=== PATIENT | male | born 1960 | race Caucasian/White ===

== ENCOUNTER 2020-04-01 11:47 | Inpatient (IN) ==
--- OUTSIDE RECORDS SUMMARY | 2020-04-01 11:50 | External Medical Summary | Continuity of Care Document ---
:1960 Author Name Lori Salas, Provider Address Unavailable Unavailable , Care Team Providers Name Role Phone Michael Salas, Tanya Shah Unavailable [email or web address] PCP, UNKNOWN Unavailable Unavailable Problems Active medical history not documented Allergies and Adverse Reactions Allergy history not documented Medications Medications not documented Procedures Procedures not documented Immunizations Immunizations not documented Plan of Treatment Planned Observations Planned Goals not documented Results No Known Results Results not documented
--- NOTE | 2020-04-01 12:13 | Emergency Department Note ---
History of Present Illness General Chief complaint: Seizure Time Seen by Provider: 04/01/20 12:00 Source: patient and EMS Mode of arrival: EMS Limitations: altered mental status History of Present Illness Provider complaint: Seizure Onset (ago): hour(s) Current Pain Intensity: 0 Associated symptoms: + denies other symptoms Treatments prior to arrival: none This is a 59-year-old male brought in by EMS [facility] after having to seizure-like episodes this morning during dialysis. Patient states he does not recall what happened. He does recall getting up, eating breakfast, and taking his usual medication, but does not recall anything after that. Per EMS report and nursing staff, staff stated he was having dialysis performed, when he had a brief episode of seizure-like activity that quickly resolved after 10 seconds or so, and then had a second longer episode lasting a minute after which time he seemed more lethargic and confused. On arrival here patient states he feels like he is in his usual state of health. Patient denies feeling any preceding or prodromal symptoms earlier in the morning. Patient denies any current headaches, dizziness, vision changes, chest pain, trouble breathing, abdominal pain, numbness or tingling, or weakness. Patient states he does get dialysis 3 times a week, only minimal urine output. Patient denies any change in his medications recently. Patient was recently admitted to the hospital with sepsis, is still receiving ongoing IV antibiotics. Patient is anticoagulated. Patient denies any family history of seizures. Patient denies any recent trauma. Pt seen during a time of high acuity and national emergency pandemic while wearing PPE. Home Medications Medication Instructions Recorded Confirmed Type allopurinol 100 mg PO DAILY 04/01/20 04/01/20 History apixaban [Eliquis] 5 mg PO BID 04/01/20 04/01/20 History ascorbic acid (vitamin C) 500 mg PO BIDM 04/01/20 04/01/20 History aspirin [Aspirin Low Dose] 81 mg PO HS 04/01/20 04/01/20 History atorvastatin 40 mg PO HS 04/01/20 04/01/20 History calcium carbonate 1,500 mg PO BID 04/01/20 04/01/20 History ceftazidime [Fortaz] 1 g IV DIRECTED 04/01/20 04/01/20 History cholecalciferol (vitamin D3) 50 mcg PO DAILY 04/01/20 04/01/20 History [Vitamin D3] cinacalcet 30 mg PO WK 04/01/20 04/01/20 History docusate sodium 100 mg PO BID 04/01/20 04/01/20 History famotidine 20 mg PO [id number] 04/01/20 04/01/20 History magnesium oxide 400 mg PO BIDM 04/01/20 04/01/20 History melatonin 3 mg PO HS 04/01/20 04/01/20 History oxybutynin chloride 5 mg PO TID 04/01/20 04/01/20 History pantoprazole 40 mg PO DAILYBB 04/01/20 04/01/20 History prednisone 5 mg PO DAILY 04/01/20 04/01/20 History sevelamer carbonate 800 mg PO TIDM 04/01/20 04/01/20 History sodium bicarbonate 325 mg PO BIDM 04/01/20 04/01/20 History sodium chloride 2 spray INTRANASAL TID PRN 04/01/20 04/01/20 History zinc sulfate 220 mg PO DAILY 04/01/20 04/01/20 History Allergies Allergy/AdvReac Type Severity Reaction Status Date / Time cefazolin [From Anc] Allergy Unknown Unverified 04/01/20 12:31 Past Med/Surg History Medical History (Updated 04/02/20 @ 15:16 by Janki Real DO) CKD (chronic kidney disease) requiring chronic dialysis CVA (cerebral vascular accident) DVT (deep venous thrombosis) Social History Smoking Status: Unknown if ever smoked Preferred Language: Zambian Communication Ability: Impaired Unit Assembler Required: No Beliefs That Will Affect Care: None Current Living Situation: Spouse Feels Safe at Home: Yes Safety Concerns: Feels Safe At This Time Assistive Devices: None Review of Systems See HPI for pertinent positives & negatives. and A total of 10 systems reviewed and were otherwise negative Physical Exam Vital Signs Vital Signs - 24 hr 04/01/20 15:10 04/01/20 15:20 04/01/20 15:30 Pulse Rate 86 78 79 Pulse Rate [Apical] Pulse Rate from SpO2 Sensor Respiratory Rate 16 17 18 Respiratory Effort / Characteristics Respiratory Depth Respiratory Pattern Blood Pressure 86/49 L Blood Pressure [Left Arm] Blood Pressure Mean 61 Blood Pressure Mean [Left Arm] Pulse Oximetry Oxygen Delivery Method Oxygen Flow Rate 04/01/20 15:39 04/01/20 15:40 04/01/20 15:48 Pulse Rate 78 75 Pulse Rate [Apical] 94 H Pulse Rate from SpO2 Sensor Respiratory Rate 14 24 20 Respiratory Effort / Characteristics Respiratory Depth Respiratory Pattern Blood Pressure 99/58 L Blood Pressure [Left Arm] 99/58 L Blood Pressure Mean 71 Blood Pressure Mean [Left Arm] 71 Pulse Oximetry 97 Oxygen Delivery Method Room Air Oxygen Flow Rate 04/01/20 15:50 04/01/20 16:00 04/01/20 16:01 Pulse Rate 91 H 79 80 Pulse Rate [Apical] Pulse Rate from SpO2 Sensor 92 H 80 Respiratory Rate 16 20 19 Respiratory Effort / Characteristics Respiratory Depth Respiratory Pattern Blood Pressure 118/56 L Blood Pressure [Left Arm] Blood Pressure Mean 76 Blood Pressure Mean [Left Arm] Pulse Oximetry 96 94 Oxygen Delivery Method Oxygen Flow Rate 04/01/20 16:10 04/01/20 16:15 04/01/20 16:20 Pulse Rate 79 71 70 Pulse Rate [Apical] Pulse Rate from SpO2 Sensor Respiratory Rate 12 19 10 L Respiratory Effort / Characteristics Respiratory Depth Respiratory Pattern Blood Pressure 114/68 Blood Pressure [Left Arm] Blood Pressure Mean 83 Blood Pressure Mean [Left Arm] Pulse Oximetry Oxygen Delivery Method Oxygen Flow Rate 04/01/20 16:30 04/01/20 16:40 04/01/20 16:46 Pulse Rate 83 88 90 Pulse Rate [Apical] Pulse Rate from SpO2 Sensor 89 Respiratory Rate 18 22 16 Respiratory Effort / Characteristics Respiratory Depth Respiratory Pattern Blood Pressure 105/68 112/64 Blood Pressure [Left Arm] Blood Pressure Mean 80 80 Blood Pressure Mean [Left Arm] Pulse Oximetry 96 Oxygen Delivery Method Oxygen Flow Rate 04/01/20 16:50 04/01/20 17:00 04/01/20 17:10 Pulse Rate 87 87 87 Pulse Rate [Apical] Pulse Rate from SpO2 Sensor 87 88 87 Respiratory Rate 24 21 Respiratory Effort / Characteristics Respiratory Depth Respiratory Pattern Blood Pressure 107/56 L Blood Pressure [Left Arm] Blood Pressure Mean 73 Blood Pressure Mean [Left Arm] Pulse Oximetry 96 96 96 Oxygen Delivery Method Oxygen Flow Rate 04/01/20 17:15 04/01/20 17:20 04/01/20 17:30 Pulse Rate 83 86 93 H Pulse Rate [Apical] Pulse Rate from SpO2 Sensor 83 87 93 H Respiratory Rate 21 20 21 Respiratory Effort / Characteristics Respiratory Depth Respiratory Pattern Blood Pressure 105/61 Blood Pressure [Left Arm] Blood Pressure Mean 75 Blood Pressure Mean [Left Arm] Pulse Oximetry 95 97 97 Oxygen Delivery Method Oxygen Flow Rate 04/01/20 17:32 04/01/20 17:40 04/01/20 17:45 Pulse Rate 86 85 69 Pulse Rate [Apical] Pulse Rate from SpO2 Sensor 86 84 71 Respiratory Rate 15 12 4 L Respiratory Effort / Characteristics Respiratory Depth Respiratory Pattern Blood Pressure 111/62 98/56 L Blood Pressure [Left Arm] Blood Pressure Mean 78 70 Blood Pressure Mean [Left Arm] Pulse Oximetry 96 100 99 Oxygen Delivery Method Oxygen Flow Rate 04/01/20 17:50 04/01/20 18:00 04/01/20 18:10 Pulse Rate 72 89 82 Pulse Rate [Apical] Pulse Rate from SpO2 Sensor 72 88 82 Respiratory Rate 3 L 17 22 Respiratory Effort / Characteristics Respiratory Depth Respiratory Pattern Blood Pressure 93/62 L Blood Pressure [Left Arm] Blood Pressure Mean 72 Blood Pressure Mean [Left Arm] Pulse Oximetry 100 98 98 Oxygen Delivery Method Oxygen Flow Rate 04/01/20 18:15 04/01/20 18:20 04/01/20 18:30 Pulse Rate 83 78 78 Pulse Rate [Apical] Pulse Rate from SpO2 Sensor 82 77 79 Respiratory Rate 24 21 Respiratory Effort / Characteristics Respiratory Depth Respiratory Pattern Blood Pressure 95/52 L Blood Pressure [Left Arm] Blood Pressure Mean 66 Blood Pressure Mean [Left Arm] Pulse Oximetry 99 98 99 Oxygen Delivery Method Oxygen Flow Rate 04/01/20 18:31 04/01/20 18:40 04/01/20 18:45 Pulse Rate 77 80 78 Pulse Rate [Apical] Pulse Rate from SpO2 Sensor 79 80 77 Respiratory Rate 15 22 24 Respiratory Effort / Characteristics Respiratory Depth Respiratory Pattern Blood Pressure 115/51 L 103/64 Blood Pressure [Left Arm] Blood Pressure Mean 72 77 Blood Pressure Mean [Left Arm] Pulse Oximetry 96 97 96 Oxygen Delivery Method Oxygen Flow Rate 04/01/20 18:50 04/01/20 19:00 04/01/20 19:01 Pulse Rate 80 82 87 Pulse Rate [Apical] Pulse Rate from SpO2 Sensor 79 84 85 Respiratory Rate 23 24 22 Respiratory Effort / Characteristics Respiratory Depth Respiratory Pattern Blood Pressure 100/56 L Blood Pressure [Left Arm] Blood Pressure Mean 70 Blood Pressure Mean [Left Arm] Pulse Oximetry 96 96 97 Oxygen Delivery Method Room Air Oxygen Flow Rate 04/01/20 19:15 04/01/20 19:30 04/01/20 19:45 Pulse Rate 74 82 74 Pulse Rate [Apical] Pulse Rate from SpO2 Sensor 75 81 71 Respiratory Rate 20 19 16 Respiratory Effort / Characteristics Respiratory Depth Respiratory Pattern Blood Pressure 109/56 L 89/71 L 94/51 L Blood Pressure [Left Arm] Blood Pressure Mean 73 77 65 Blood Pressure Mean [Left Arm] Pulse Oximetry 96 96 95 Oxygen Delivery Method Room Air Room Air Room Air Oxygen Flow Rate 04/01/20 20:15 04/01/20 20:31 04/01/20 20:46 Pulse Rate 85 84 Pulse Rate [Apical] Pulse Rate from SpO2 Sensor 86 Respiratory Rate 16 16 Respiratory Effort / Characteristics Respiratory Depth Respiratory Pattern Blood Pressure 99/58 L 96/42 L Blood Pressure [Left Arm] Blood Pressure Mean 71 75 60 Blood Pressure Mean [Left Arm] Pulse Oximetry 95 97 Oxygen Delivery Method Room Air Room Air Oxygen Flow Rate 04/01/20 21:15 04/01/20 21:23 04/01/20 21:31 Pulse Rate 77 90 81 Pulse Rate [Apical] Pulse Rate from SpO2 Sensor 89 81 Respiratory Rate 17 15 22 Respiratory Effort / Characteristics Respiratory Depth Respiratory Pattern Blood Pressure 89/41 L 123/62 97/56 L Blood Pressure [Left Arm] Blood Pressure Mean 57 82 69 Blood Pressure Mean [Left Arm] Pulse Oximetry 97 98 95 Oxygen Delivery Method Room Air Room Air Room Air Oxygen Flow Rate 04/01/20 21:40 04/01/20 21:45 04/01/20 22:00 Pulse Rate 81 84 Pulse Rate [Apical] Pulse Rate from SpO2 Sensor 81 84 Respiratory Rate 22 13 Respiratory Effort / Characteristics Non-Labored Spontaneous Respiratory Depth Normal Respiratory Pattern Regular Blood Pressure 105/62 94/50 L Blood Pressure [Left Arm] Blood Pressure Mean 76 64 Blood Pressure Mean [Left Arm] Pulse Oximetry 95 96 Oxygen Delivery Method Room Air Room Air Oxygen Flow Rate 04/01/20 22:15 04/01/20 22:30 04/01/20 22:45 Pulse Rate 91 H 73 66 Pulse Rate [Apical] Pulse Rate from SpO2 Sensor 89 73 66 Respiratory Rate 9 L 20 16 Respiratory Effort / Characteristics Respiratory Depth Respiratory Pattern Blood Pressure 92/51 L 109/61 100/48 L Blood Pressure [Left Arm] Blood Pressure Mean 64 77 65 Blood Pressure Mean [Left Arm] Pulse Oximetry 97 97 97 Oxygen Delivery Method Room Air Room Air Room Air Oxygen Flow Rate 04/01/20 23:01 04/01/20 23:15 04/01/20 23:27 Pulse Rate 65 89 Pulse Rate [Apical] Pulse Rate from SpO2 Sensor 65 90 Respiratory Rate 19 14 Respiratory Effort / Characteristics Respiratory Depth Respiratory Pattern Blood Pressure 102/57 L 109/49 L Blood Pressure [Left Arm] Blood Pressure Mean 72 82 69 Blood Pressure Mean [Left Arm] Pulse Oximetry 93 93 Oxygen Delivery Method Room Air Room Air Oxygen Flow Rate 04/01/20 23:30 04/01/20 23:45 04/02/20 00:01 Pulse Rate 82 83 Pulse Rate [Apical] Pulse Rate from SpO2 Sensor 83 81 Respiratory Rate 8 L 14 Respiratory Effort / Characteristics Respiratory Depth Respiratory Pattern Blood Pressure 131/54 L 131/48 L Blood Pressure [Left Arm] Blood Pressure Mean 72 79 75 Blood Pressure Mean [Left Arm] Pulse Oximetry 87 L 91 Oxygen Delivery Method Room Air Oxygen Flow Rate 04/02/20 00:15 04/02/20 00:30 04/02/20 00:49 Pulse Rate 82 Pulse Rate [Apical] Pulse Rate from SpO2 Sensor 84 Respiratory Rate 15 Respiratory Effort / Characteristics Respiratory Depth Respiratory Pattern Blood Pressure 113/49 L Blood Pressure [Left Arm] Blood Pressure Mean 70 45 Blood Pressure Mean [Left Arm] Pulse Oximetry 94 Oxygen Delivery Method Nasal Cannula Nasal Cannula Oxygen Flow Rate 2 2 04/02/20 00:52 04/02/20 00:53 04/02/20 01:04 Pulse Rate 86 82 Pulse Rate [Apical] Pulse Rate from SpO2 Sensor 89 81 Respiratory Rate 12 14 Respiratory Effort / Characteristics Respiratory Depth Respiratory Pattern Blood Pressure 106/45 L 93/34 L Blood Pressure [Left Arm] Blood Pressure Mean 65 53 Blood Pressure Mean [Left Arm] Pulse Oximetry 97 94 99 Oxygen Delivery Method Nasal Cannula Nasal Cannula Nasal Cannula Oxygen Flow Rate 2 2 2 04/02/20 01:11 04/02/20 01:14 04/02/20 01:15 Pulse Rate 82 81 Pulse Rate [Apical] Pulse Rate from SpO2 Sensor 82 80 Respiratory Rate 15 14 Respiratory Effort / Characteristics Respiratory Depth Respiratory Pattern Blood Pressure 100/51 L 107/51 L Blood Pressure [Left Arm] Blood Pressure Mean 44 67 69 Blood Pressure Mean [Left Arm] Pulse Oximetry 97 96 Oxygen Delivery Method Nasal Cannula Nasal Cannula Oxygen Flow Rate 2 2 04/02/20 01:20 04/02/20 01:30 04/02/20 01:34 Pulse Rate 78 81 78 Pulse Rate [Apical] Pulse Rate from SpO2 Sensor Respiratory Rate 14 Respiratory Effort / Characteristics Respiratory Depth Respiratory Pattern Blood Pressure 96/64 L Blood Pressure [Left Arm] Blood Pressure Mean 74 Blood Pressure Mean [Left Arm] Pulse Oximetry 94 Oxygen Delivery Method Nasal Cannula Oxygen Flow Rate 2 04/02/20 02:03 04/02/20 03:00 04/02/20 04:00 Pulse Rate 83 77 76 Pulse Rate [Apical] Pulse Rate from SpO2 Sensor Respiratory Rate 14 13 14 Respiratory Effort / Characteristics Respiratory Depth Respiratory Pattern Blood Pressure 102/57 L 103/31 L 88/45 L Blood Pressure [Left Arm] Blood Pressure Mean 72 57 52 Blood Pressure Mean [Left Arm] Pulse Oximetry 95 Oxygen Delivery Method Nasal Cannula Oxygen Flow Rate 2 04/02/20 04:18 04/02/20 04:53 04/02/20 05:02 Pulse Rate 85 76 70 Pulse Rate [Apical] Pulse Rate from SpO2 Sensor 75 72 Respiratory Rate 12 17 12 Respiratory Effort / Characteristics Respiratory Depth Respiratory Pattern Blood Pressure 85/58 L 74/58 L 84/68 L Blood Pressure [Left Arm] Blood Pressure Mean 73 61 72 Blood Pressure Mean [Left Arm] Pulse Oximetry 95 98 91 Oxygen Delivery Method Room Air Room Air Room Air Oxygen Flow Rate 04/02/20 05:22 Pulse Rate 69 Pulse Rate [Apical] Pulse Rate from SpO2 Sensor Respiratory Rate 13 Respiratory Effort / Characteristics Respiratory Depth Respiratory Pattern Blood Pressure 97/67 L Blood Pressure [Left Arm] Blood Pressure Mean 80 Blood Pressure Mean [Left Arm] Pulse Oximetry 92 Oxygen Delivery Method Room Air Oxygen Flow Rate GENERAL: alert, ill appearing, well nourished, no distress, non-toxic EYE EXAM: normal conjunctiva, PERRL and EOM's grossly intact OROPHARYNX: no exudate, no erythema, lips, buccal mucosa, and tongue normal and mucous membranes are moist NECK: supple, no nuchal rigidity, no adenopathy, non-tender LUNGS: Clear to auscultation. Normal chest wall mechanics, no w/r/r HEART: no murmurs, S1 normal and S2 normal ABDOMEN: abdomen soft, non-tender, normo-active bowel sounds, no masses, no rebound or guarding. BACK: Back is symmetrical on inspection and there is no deformity, no midline tenderness, no CVA tenderness. SKIN: no rashes and no bruising UPPER EXTREMITIES: upper extremities are grossly normal. FROM, nml pulses b/l. Fistula noted left upper extremity, dressing intact. LOWER EXTREMITIES: No pitting edema. FROM, nml pulses b/l. Chronic appearing skin changes and chronic appearing atrophy noted to the bilateral lower ext remities. NEURO EXAM: Normal sensorium, cranial nerves II-XII grossly intact, normal speech, no gross weakness of arms, no gross weakness of legs. Gross sensation intact. NIHSS 0 Course Course 1315: I updated the patient and now who is at bedside. She states the patient was confused on Saturday and Saturday, seemed improved yesterday, and then she received a call today that he was being sent to the emergency room. She states he did have a left-sided stroke in April 2019. She states she has not noticed any other new symptoms including facial droop, slurred speech, or asymmetric weakness. 1330: Pt with a brief, 10-15 second episode of seizures again per report. These had stopped when staff entered the room. Will add Keppra. 1338: Discussed with Erica MARTINEZ, [facility]. They request a consult with our telestroke neurologist as they currently have no in house stroke specialist. 1350: Discussed with Dr. Villalobos, [facility] teleneurolog[facility]. Pt isn't a candidate for tPA or other intervention for stroke. 1430: Discussed with [facility] again, they will accept patient, attending of record will be Dr. Gerber. 1855: We will order patient's usual ceftazidime that he would typically get in the evening. This was reviewed on the patient's MAR from . 1953: Patient still awaiting bed assignment and transportation to [facility]. We did recontact [facility] 2 separate times and they state they are still planning on the patient being transferred then this evening as they have been able to make discharges on her cleaning rooms. Patient remains hemodynamically stable here, resting comfortably. No further seizure-like activity. 5: Patient still awaiting transfer to [facility]. Case discussed with Dr. Montez to follow-up for any changes. Administered Medications Allopurinol (Allopurinol 100 Mg Tab) 100 mg PO DAILY DARRON Stop: 05/02/20 08:59 Last Admin: 04/02/20 09:07 Dose: 100 mg Documented by: [id number] Apixaban (Apixaban 5 Mg Tablet) 5 mg PO BID [facility] Stop: 05/02/20 08:59 Last Admin: 04/02/20 09:06 Dose: 5 mg Documented by: [id number] Ascorbic Acid (Ascorbic Acid 500 Mg Tab) 500 mg PO BIDM [facility] Stop: 05/02/20 07:59 Last Admin: 04/02/20 09:05 Dose: 500 mg Documented by: [id number] Calcium Carbonate (Calcium Carbonate 1250mg Tab) 3,750 mg PO BID [facility] Stop: 05/02/20 08:59 Last Admin: 04/02/20 09:06 Dose: 3,750 mg Documented by: [id number] Docusate Sodium (Docusate Sodium 100 Mg Cap) 100 mg PO BID [facility] Stop: 05/02/20 08:59 Last Admin: 04/02/20 09:06 Dose: 100 mg Documented by: [id number] Sodium Chloride (Nss 1000ml) 1,000 mls @ 50 mls/hr IV .Q20H [facility] Stop: 05/02/20 07:00 Last Admin: 04/02/20 09:04 Dose: 50 mls/hr Documented by: [id number] Magnesium Oxide (Magnesium Oxide 400 Mg Tab) 400 mg PO BIDM [facility] Stop: 05/02/20 07:59 Last Admin: 04/02/20 09:06 Dose: 400 mg Documented by: [id number] Miscellaneous (Cinacalcet (Sensipar)30 Mg Tab~Order Awaiting Action) 1 ea N/A QS [facility] Stop: 05/02/20 07:59 Last Admin: 04/02/20 09:16 Dose: Not Given Documented by: [id number] Oxybutynin Chloride (Oxybutynin Chloride 5 Mg Tab) 5 mg PO TID [facility] Stop: 05/02/20 08:59 Last Admin: 04/02/20 13:09 Dose: 5 mg Documented by: [id number] Admin: 04/02/20 09:05 Dose: 5 mg Documented by: [id number] Pantoprazole Sodium (Pantoprazole 40 Mg Tab) 40 mg PO DAILYBB [facility] Stop: 05/02/20 07:29 Last Admin: 04/02/20 09:07 Dose: 40 mg Documented by: [id number] Prednisone (Prednisone 5 Mg Tab) 5 mg PO DAILY [facility] Stop: 05/02/20 08:59 Last Admin: 04/02/20 09:05 Dose: 5 mg Documented by: [id number] Sevelamer HCl (Sevelamer Hcl 800 Mg Tablet) 800 mg PO TIDM [facility] Stop: 05/02/20 07:59 Last Admin: 04/02/20 13:10 Dose: 800 mg Documented by: [id number] Admin: 04/02/20 09:05 Dose: 800 mg Documented by: [id number] Sodium Bicarbonate (Sodium Bicarbonate 650 Mg Tab) 325 mg PO BIDM D[facility] Stop: 05/02/20 07:59 Last Admin: 04/02/20 09:05 Dose: 325 mg Documented by: [id number] Vitamin D (Cholecalciferol 1,000 Units 25 Mcg Tab) 2,000 units PO DAILY [facility] Stop: 05/02/20 08:59 Last Admin: 04/02/20 09:07 Dose: 2,000 units Documented by: [id number] Discontinued Medications Levetiracetam 1,000 mg/ Sodium (Chloride) 110 mls @ 440 mls/hr IV NOW STA Stop: 04/01/20 13:41 Last Infusion: 04/01/20 23:00 Dose: 0 mls/hr Documented by: [id number] Admin: 04/01/20 13:44 Dose: 440 mls/hr Documented by: [id number] Lorazepam (Ativan) 0.5 mg in 1 mls @ 1 mls/min IV NOW STA Stop: 04/01/20 15:25 Last Admin: 04/02/20 08:04 Dose: Not Given Documented by: [id number] Prochlorperazine (Compazine) 1 mls @ 1 mls/min IV ONE ONE Stop: 04/01/20 15:25 Last Admin: 04/01/20 15:48 Dose: 1 mls/min Documented by: [id number] Ceftazidime 500 mg/ Dextrose 50 mls @ 100 mls/hr IV NOW STA Stop: 04/01/20 22:21 Last Infusion: 04/01/20 23:05 Dose: 0 mls/hr Documented by: [id number] Admin: 04/01/20 22:39 Dose: 100 mls/hr Documented by: [id number] Sodium Chloride (Nss 1000ml) 500 mls @ 999 mls/hr IV .Q31M ONE Stop: 04/02/20 05:29 Last Infusion: 04/02/20 05:45 Dose: 0 mls/hr Documented by: [id number] Admin: 04/02/20 05:14 Dose: 999 mls/hr Documented by: [id number] Piperacillin Sod/Tazobactam Sod (Zosyn) 4.5 gm in 120 mls @ 240 mls/hr IV NOW ONE Stop: 04/02/20 06:36 Last Infusion: 04/02/20 06:45 Dose: 0 mls/hr Documented by: [id number] Admin: 04/02/20 06:15 Dose: 240 mls/hr Documented by: [id number] Ondansetron HCl (Ondansetron Inj 2 Mg/Ml 2 Ml Vial) 4 mg IV NOW STA Stop: 04/01/20 13:27 Last Admin: 04/01/20 13:44 Dose: 4 mg Documented by: [id number] Critical Care Time Critical Care Time: Yes Total Critical Care Time: 48 Critical care of 48 min performed to assess and manage high likelihood of life- threatening cva and seizures, involving labs and imaging performed with assessment to evaluate cva and seizure diagnosis with frequent reassessment. This time includes bedside time, treatment discussions with patient/family/consultants, documentation time and excludes procedure time. Medical Decision Making Differential Diagnosis Differential diagnosis includes etiologies such as infection, hypoglycemia, electrolyte abnormalities, cardiac sources, intracerebral event, trauma, toxicologic, neurologic, as well as others were entertained. Medical Records Attestation: I reviewed the patient's medical records. Home Medications Current Medication List: was personally reviewed by me Laboratory Data Attestation: I reviewed the patient's lab results. Result diagrams: 04/02/20 05:32 04/02/20 05:32 Lab Results 04/01/20 04/01/20 04/01/20 Range/Units 12:18 12:18 12:18 WBC 14.95 H (4.8-10.8) K/uL RBC 4.58 L (4.7-6.1) M/uL Hgb 14.8 (14.0-18.0) g/dL Hct 46.1 (42-52) % MCV 100.7 H (80-100) fL MCH 32.3 (25-34) pg MCHC 32.1 (32-36) g/dL RDW Std Deviation 62.8 H (36.4-46.3) fL RDW Coeff of Ara 17.0 H (11.5-14.5) % Plt Count 245 (130-400) K/uL MPV 11.5 H (7.4-10.4) fL Immature Gran % (Auto) 0.7 % Neut % (Auto) 84.3 % Lymph % (Auto) 6.0 % [place] % (Auto) 7.8 % Eos % (Auto) 1.1 % Baso % (Auto) 0.1 % Neut # (Auto) 12.58 H (1.4-6.5) K/uL Lymph # (Auto) 0.90 L (1.2-3.4) K/uL [place] # (Auto) 1.17 H (0.11-0.59) K/uL Eos # (Auto) 0.17 (0-0.5) K/uL Baso # (Auto) 0.02 (0-0.2) K/uL Immature Gran # (Auto) 0.11 H (0.00-0.02) K/uL PT 12.5 H (9.0-12.0) Seconds INR 1.2 H (0.9-1.1) Sodium 132 L (136-145) mmol/L Potassium 4.2 (3.5-5.1) mmol/L Chloride 96 L (98-107) mmol/L Carbon Dioxide 28 (21-32) mmol/L Anion Gap 9.0 (3-11) BUN 37 H (7-18) mg/dl Creatinine 7.44 H* (0.6-1.4) mg/dl Est Cr Clr Drug Dosing 12.3 ml/min Est GFR ( Amer) 8.3 Est GFR (Non-Af Amer) 7.1 BUN/Creatinine Ratio 4.9 L (10-20) Glucose 118 H (70-99) mg/dl Lactate (0.4-2.0) mmol/L Calcium 9.6 (8.5-10.1) mg/dl Phosphorus 3.1 (2.5-4.9) mg/dl Magnesium 2.7 H (1.8-2.4) mg/dl Total Bilirubin 0.6 (0.2-1) mg/dl Direct Bilirubin (0-0.2) mg/dl AST 18 (15-37) U/L ALT 30 (12-78) U/L Alkaline Phosphatase 110 (45-117) U/L Total Protein 8.3 H (6.4-8.2) gm/dl Albumin 3.9 (3.4-5.0) gm/dl Globulin 4.4 H (2.5-4.0) gm/dl Albumin/Globulin Ratio 0.9 (0.9-2) Procalcitonin (0-0.5) ng/ml Urine Color Urine Appearance (Clear) Urine pH (4.5-7.5) Ur Specific [place] (1.000-1.030) Urine Protein (Negative) Urine Glucose (UA) (Negative) Urine Ketones (Negative) Urine Blood (Negative) Urine Nitrite (Negative) Urine Bilirubin (Negative) Urine Urobilinogen (Negative) Ur Leukocyte Esterase (Negative) Urine WBC (Auto) (0-5) /hpf Urine RBC (Auto) (0-4) /hpf U Hyaline Cast (Auto) (0-5) /lpf U Epithel Cells (Auto) (0-5) /lpf Urine Bacteria (Auto) (Negative) Urine Yeast SARS-CoV-2 Ag (Rapid) (Negative) 04/01/20 04/02/20 04/02/20 Range/Units 14:52 05:20 05:32 WBC 13.59 H (4.8-10.8) K/uL RBC 4.03 L (4.7-6.1) M/uL Hgb 13.0 L (14.0-18.0) g/dL Hct 41.1 L (42-52) % MCV 102.0 H (80-100) fL MCH 32.3 (25-34) pg MCHC 31.6 L (32-36) g/dL RDW Std Deviation 63.6 H (36.4-46.3) fL RDW Coeff of Ara 17.0 H (11.5-14.5) % Plt Count 212 (130-400) K/uL MPV 11.3 H (7.4-10.4) fL Immature Gran % (Auto) 0.9 % Neut % (Auto) 77.5 % Lymph % (Auto) 12.2 % [place] % (Auto) 7.7 % Eos % (Auto) 1.5 % Baso % (Auto) 0.2 % Neut # (Auto) 10.52 H (1.4-6.5) K/uL Lymph # (Auto) 1.66 (1.2-3.4) K/uL [place] # (Auto) 1.05 H (0.11-0.59) K/uL Eos # (Auto) 0.21 (0-0.5) K/uL Baso # (Auto) 0.03 (0-0.2) K/uL Immature Gran # (Auto) 0.12 H (0.00-0.02) K/uL PT (9.0-12.0) Seconds INR (0.9-1.1) Sodium (136-145) mmol/L Potassium (3.5-5.1) mmol/L Chloride (98-107) mmol/L Carbon Dioxide (21-32) mmol/L Anion Gap (3-11) BUN (7-18) mg/dl Creatinine (0.6-1.4) mg/dl Est Cr Clr Drug Dosing ml/min Est GFR ( Amer) Est GFR (Non-Af Amer) BUN/Creatinine Ratio (10-20) Glucose (70-99) mg/dl Lactate (0.4-2.0) mmol/L Calcium (8.5-10.1) mg/dl Phosphorus (2.5-4.9) mg/dl Magnesium (1.8-2.4) mg/dl Total Bilirubin (0.2-1) mg/dl Direct Bilirubin (0-0.2) mg/dl AST (15-37) U/L ALT (12-78) U/L Alkaline Phosphatase (45-117) U/L Total Protein (6.4-8.2) gm/dl Albumin (3.4-5.0) gm/dl Globulin (2.5-4.0) gm/dl Albumin/Globulin Ratio (0.9-2) Procalcitonin (0-0.5) ng/ml Urine Color [place] Urine Appearance Turbid A (Clear) Urine pH 8.5 H (4.5-7.5) Ur Specific [place] 1.018 (1.000-1.030) Urine Protein 3+ H (Negative) Urine Glucose (UA) Negative (Negative) Urine Ketones Negative (Negative) Urine Blood 3+ H (Negative) Urine Nitrite Positive A (Negative) Urine Bilirubin Negative (Negative) Urine Urobilinogen Negative (Negative) Ur Leukocyte Esterase 3+ H (Negative) Urine WBC (Auto) >30 H (0-5) /hpf Urine RBC (Auto) 10-30 H (0-4) /hpf U Hyaline Cast (Auto) 0 (0-5) /lpf U Epithel Cells (Auto) >30 H (0-5) /lpf Urine Bacteria (Auto) Negative (Negative) Urine Yeast Not Reportable SARS-CoV-2 Ag (Rapid) Negative (Negative) 04/02/20 04/02/20 04/02/20 Range/Units 05:32 05:32 05:32 WBC (4.8-10.8) K/uL RBC (4.7-6.1) M/uL Hgb (14.0-18.0) g/dL Hct (42-52) % MCV (80-100) fL MCH (25-34) pg MCHC (32-36) g/dL RDW Std Deviation (36.4-46.3) fL RDW Coeff of Ara (11.5-14.5) % Plt Count (130-400) K/uL MPV (7.4-10.4) fL Immature Gran % (Auto) % Neut % (Auto) % Lymph % (Auto) % [place] % (Auto) % Eos % (Auto) % Baso % (Auto) % Neut # (Auto) (1.4-6.5) K/uL Lymph # (Auto) (1.2-3.4) K/uL [place] # (Auto) (0.11-0.59) K/uL Eos # (Auto) (0-0.5) K/uL Baso # (Auto) (0-0.2) K/uL Immature Gran # (Auto) (0.00-0.02) K/uL PT (9.0-12.0) Seconds INR (0.9-1.1) Sodium 135 L (136-145) mmol/L Potassium 5.1 D (3.5-5.1) mmol/L Chloride 100 (98-107) mmol/L Carbon Dioxide 29 (21-32) mmol/L Anion Gap 6.0 (3-11) BUN 54 H (7-18) mg/dl Creatinine 9.09 H* D (0.6-1.4) mg/dl Est Cr Clr Drug Dosing 10.1 ml/min Est GFR ( Amer) 6.5 Est GFR (Non-Af Amer) 5.6 BUN/Creatinine Ratio 5.9 L (10-20) Glucose 80 (70-99) mg/dl Lactate 1.4 (0.4-2.0) mmol/L Calcium 8.8 (8.5-10.1) mg/dl Phosphorus (2.5-4.9) mg/dl Magnesium (1.8-2.4) mg/dl Total Bilirubin 0.5 (0.2-1) mg/dl Direct Bilirubin 0.2 (0-0.2) mg/dl AST 13 L (15-37) U/L ALT 23 (12-78) U/L Alkaline Phosphatase 100 (45-117) U/L Total Protein 7.3 (6.4-8.2) gm/dl Albumin 3.5 (3.4-5.0) gm/dl Globulin (2.5-4.0) gm/dl Albumin/Globulin Ratio (0.9-2) Procalcitonin 0.83 H (0-0.5) ng/ml Urine Color Urine Appearance (Clear) Urine pH (4.5-7.5) Ur Specific [place] (1.000-1.030) Urine Protein (Negative) Urine Glucose (UA) (Negative) Urine Ketones (Negative) Urine Blood (Negative) Urine Nitrite (Negative) Urine Bilirubin (Negative) Urine Urobilinogen (Negative) Ur Leukocyte Esterase (Negative) Urine WBC (Auto) (0-5) /hpf Urine RBC (Auto) (0-4) /hpf U Hyaline Cast (Auto) (0-5) /lpf U Epithel Cells (Auto) (0-5) /lpf Urine Bacteria (Auto) (Negative) Urine Yeast SARS-CoV-2 Ag (Rapid) (Negative) 04/02/20 Range/Units 05:32 WBC (4.8-10.8) K/uL RBC (4.7-6.1) M/uL Hgb (14.0-18.0) g/dL Hct (42-52) % MCV (80-100) fL MCH (25-34) pg MCHC (32-36) g/dL RDW Std Deviation (36.4-46.3) fL RDW Coeff of Ara (11.5-14.5) % Plt Count (130-400) K/uL MPV (7.4-10.4) fL Immature Gran % (Auto) % Neut % (Auto) % Lymph % (Auto) % [place] % (Auto) % Eos % (Auto) % Baso % (Auto) % Neut # (Auto) (1.4-6.5) K/uL Lymph # (Auto) (1.2-3.4) K/uL [place] # (Auto) (0.11-0.59) K/uL Eos # (Auto) (0-0.5) K/uL Baso # (Auto) (0-0.2) K/uL Immature Gran # (Auto) (0.00-0.02) K/uL PT (9.0-12.0) Seconds INR (0.9-1.1) Sodium (136-145) mmol/L Potassium (3.5-5.1) mmol/L Chloride (98-107) mmol/L Carbon Dioxide (21-32) mmol/L Anion Gap (3-11) BUN (7-18) mg/dl Creatinine (0.6-1.4) mg/dl Est Cr Clr Drug Dosing ml/min Est GFR ( Amer) Est GFR (Non-Af Amer) BUN/Creatinine Ratio (10-20) Glucose (70-99) mg/dl Lactate (0.4-2.0) mmol/L Calcium (8.5-10.1) mg/dl Phosphorus (2.5-4.9) mg/dl Magnesium 3.0 H (1.8-2.4) mg/dl Total Bilirubin (0.2-1) mg/dl Direct Bilirubin (0-0.2) mg/dl AST (15-37) U/L ALT (12-78) U/L Alkaline Phosphatase (45-117) U/L Total Protein (6.4-8.2) gm/dl Albumin (3.4-5.0) gm/dl Globulin (2.5-4.0) gm/dl Albumin/Globulin Ratio (0.9-2) Procalcitonin (0-0.5) ng/ml Urine Color Urine Appearance (Clear) Urine pH (4.5-7.5) Ur Specific [place] (1.000-1.030) Urine Protein (Negative) Urine Glucose (UA) (Negative) Urine Ketones (Negative) Urine Blood (Negative) Urine Nitrite (Negative) Urine Bilirubin (Negative) Urine Urobilinogen (Negative) Ur Leukocyte Esterase (Negative) Urine WBC (Auto) (0-5) /hpf Urine RBC (Auto) (0-4) /hpf U Hyaline Cast (Auto) (0-5) /lpf U Epithel Cells (Auto) (0-5) /lpf Urine Bacteria (Auto) (Negative) Urine Yeast SARS-CoV-2 Ag (Rapid) (Negative) Imaging Data Radiologist's Impression: XR chest 1V portable CLINICAL HISTORY: Acute change in mental status COMPARISON STUDY: No previous studies for comparison. FINDINGS: The cardiac and mediastinal contours are normal. There is no evidence of focal pulmonary consolidation. There is no evidence of failure. No pleural effusions are visualized.[There is a vascular stent in the left axillary region. There is a vascular stent in the right paratracheal region. IMPRESSION: No active disease in the chest. ACT 112: Negative or not required by law. Electronically signed by: Paul Roman M.D. 04/01/2020 12:[address] head/brain wo con CLINICAL HISTORY: new seizure COMPARISON STUDY: No previous studies for comparison. TECHNIQUE: Axial CT of the brain is performed from the vertex to the skull base. IV contrast was not administered for this examination. A dose lowering technique was utilized adhering to the principles of ALARA. CT DOSE: 1185.89 mGycm FINDINGS: There is a left temporal occipital infarct, likely subacute or chronic. There is subtle decreased attenuation within the right temporal and occipital lobe suspicious for an acute infarct. There is no definite hemorrhage. There is no midline shift. No calvarial fractures are visualized There are patchy white matter hypodensities likely on a small vessel basis. There is no evidence of pathologic ventricular dilatation. There is no evidence of acute sinusitis IMPRESSION: 1. Left temporal occipital infarct, likely subacute or chronic 2. Subtle decreased attenuation within the right temporal and occipital lobes suspicious for acute infarction. An MRI could be obtained in follow-up for confirmation. ACT 112: Negative or not required by law. Electronically signed by: Paul Roman M.D. 04/01/2020 12:59 PM ECG Data Attestation: I personally reviewed and interpreted this ECG as follows: Indication: + weakness Rate (beats per minute): 77 Rhythm: + normal sinus ECG Intervals/blocks: + Normal QRS and + Normal QT ECG [place]: + Normal ECG ST segments: + Normal ST segments MDM Narrative This is a 59-year-old male brought in from [facility] after a seizure-like event while patient was undergoing dialysis. Patient underwent labs and imaging and placed on a library monitor. Patient with significant recent past medical history including recent hospitalization at another facility for sepsis related to urinary tract infection. Patient is still getting IV ceftazidime daily. CT revealed acute CVA as well as old CVA. Given unknown last time well, current anticoagulation, and NIH stroke score of 0, I do not feel patient a candidate for emergent TPA. I did discuss the case with on-call teleneurology at [place] who agreed. Patient otherwise to be treated medically for stroke evaluation. Patient's family requested he be sent back to [facility] where he had recently been admitted. Arrangements were made after discussion with them on 2 occasions and they accepted the patient for transfer, however a bed was pending at the time. Patient continued to be well-appearing here. I did order the patient's usual IV ceftazidime that he has been getting. Patient did get his morning anticoagulation prior to coming in. Patient did have 1 brief episode of hypotension which improved with a 500 mL bolus of IV fluids. Additional fluids otherwise KVO due to patient's volume status and the fact that he did not complete dialysis earlier today, as he only had 3 hours. Patient remained hemodynamically stable while in the emergency room while I was present. Patient signed out to my colleague as he was still in the department at change of shift. We did discuss that if patient could not soon be transferred down there, he may need to be admitted here as a precaution for additional monitoring and treatment until a bed is available at [facility]. Patient's labs otherwise reassuring in light of recent sepsis and other comorbidities. I do not suspect worsening or evolving sepsis. Patient did receive a dose of IV Keppra earlier, he had no recurrent seizure-like activity. An order was placed for continuous cardiac monitoring. The monitor shows a rate of _80_ with _normal sinus rhythm. Impression & Plan New onset seizure, CKD (chronic kidney disease) requiring chronic dialysis, Acute CVA (cerebrovascular accident) Discharge Plan Visit Data Chief Complaint: Seizure ED Provider: Galindo Morrow Discharge Problem: New onset seizure, CKD (chronic kidney disease) requiring chronic dialysis, Acute CVA (cerebrovascular accident) Patient Disposition: Admitted As Inpatient Discharge Instructions Interventions: ED Discharge Assessment Last Done: 04/02/20 06:34
--- NOTE | 2020-04-01 12:24 | XRay Report ---
XR chest 1V portable CLINICAL HISTORY: Acute change in mental status COMPARISON STUDY: No previous studies for comparison. FINDINGS: The cardiac and mediastinal contours are normal. There is no evidence of focal pulmonary co nsolidation. There is no evidence of failure. No pleural effusions are visualized.[There is a vascula r stent in the left axillary region. There is a vascular stent in the right paratracheal region. IMPRESSION: No active disease in the chest. ACT 112: Negative or not required by law. Electronically signed by: Paul Roman M.D. 04/01/2020 12:22 PM
[2020-04-01 12:27] LABS: Basophils # (auto) 0.02 K/uL (0-0.2); Basophils % (auto) 0.1 %; Eosinophils # (auto) 0.17 K/uL (0-0.5); Eosinophils % (auto) 1.1 %; Hematocrit (blood only) 46.1 % (42-52); Hemoglobin 14.8 g/dL (14.0-18.0); Immature Granulocytes # (auto) 0.11 K/uL (0.00-0.02); Immature Granulocytes % (auto) 0.7 %; Mean Corpuscular Hemoglobin 32.3 pg (25-34); Mean Corpuscular Hgb Conc 32.1 g/dL (32-36); Mean Corpuscular Volume 100.7 fL (80-100); Mean Platelet Volume 11.5 fL (7.4-10.4); Monocytes # (auto) 1.17 K/uL (0.11-0.59); Monocytes % (auto) 7.8 %; Neutrophils # (auto) 12.58 K/uL (1.4-6.5); Neutrophils % (auto) 84.3 %; Platelet Count 245 K/uL (130-400); RDW Standard Deviation 62.8 fL (36.4-46.3); Red Blood Count 4.58 M/uL (4.7-6.1); White Blood Count 14.95 K/uL (4.8-10.8)
[2020-04-01 12:38] LABS: INR 1.2 (0.9-1.1); Prothrombin Time 12.5 Seconds (9.0-12.0)
--- NOTE | 2020-04-01 13:00 | CT Scan Report ---
CT head/brain wo con CLINICAL HISTORY: new seizure COMPARISON STUDY: No previous studies for comparison. TECHNIQUE: Axial CT of the brain is performed from the vertex to the skull base. IV contrast was not administered for this examination. A dose lowering technique was utilized adhering to the principles of ALARA. CT DOSE: 1185.89 mGycm FINDINGS: There is a left temporal occipital infarct, likely subacute or chronic. There is subtle decreased att enuation within the right temporal and occipital lobe suspicious for an acute infarct. There is no de finite hemorrhage. There is no midline shift. No calvarial fractures are visualized There are patchy white matter hypodensities likely on a small vessel basis. There is no evidence of pathologic ventricular dilatation. There is no evidence of acute sinusitis IMPRESSION: 1. Left temporal occipital infarct, likely subacute or chronic 2. Subtle decreased attenuation within the right temporal and occipital lobes suspicious for acute in farction. An MRI could be obtained in follow-up for confirmation. ACT 112: Negative or not required by law. Electronically signed by: Paul Roman M.D. 04/01/2020 12:59 PM
[2020-04-01 13:15] LABS: Albumin Level 3.9 gm/dl (3.4-5.0); Bilirubin,Total 0.6 mg/dl (0.2-1); Calcium 9.6 mg/dl (8.5-10.1); Magnesium 2.7 mg/dl (1.8-2.4); Phosphorus 3.1 mg/dl (2.5-4.9); Potassium 4.2 mmol/L (3.5-5.1); Total Protein 8.3 gm/dl (6.4-8.2)
[2020-04-01 13:16] LABS: Albumin Globulin Ratio 0.9 (0.9-2); BUN Creatinine Ratio 4.9 (10-20); Creatinine Clr Calc Pharmacy 12.3 ml/min; Est GFR (African American) 8.3; Est GFR (Non-African American) 7.1; Globulin 4.4 gm/dl (2.5-4.0)
[2020-04-01] MEDS ORDERED: ONDANSETRON INJ 2 MG/ML 2 ML VIAL IV STA (13:26)
[2020-04-01] MEDS ORDERED: levETIRAcetam 1,000 MG in 0.9 % SODIUM CHLORIDE 100 ML IV STA (13:27)
[2020-04-01] MEDS ORDERED: LORazepam 0.5 MG/1 ML VIAL IV STA (15:24)
[2020-04-01] MEDS ORDERED: PROCHLORPERAZINE 1 ML IV ONE (15:24)
[2020-04-01] MEDS ORDERED: cefTAZidime 500 MG in DEXTROSE 5% 50 ML IV STA (21:52)
--- NOTE | 2020-04-02 00:57 | Emergency Department Note ---
ED Visit Note This patient was signed out to me at shift change at approximately [address] Real. The patient had been evaluated and was awaiting transfer to [facility]. [facility] yet. I checked on the patient several times hearing stably no seizure- like activity. He is being transferred there for further treatment evaluation of a stroke and seizure. He was outside of the intervention/TPA window. They are still waiting on a bed and at approximately 1:[address] out [address]. Morrow the night order selector .
--- NOTE | 2020-04-02 01:07 | Emergency Department Note ---
ED Visit Note ED Physician Sign Out Note: 59 yr old chronically unwell male with acute stroke and seizure earlier today. Recently discharged from [facility] 2nd UTI sepsis and rehabing at [facility]. At time of sign out to me by Dr Montez he has been in ED for 12+ hours awaiting bed availability at [facility] where he was accepted earlier. Already loaded with Keppra. Patient evaluated and in no distress. BP a bit low but review appears this has been his baseline and as a dialysis patient not overly concerning. No evidence sepsis. No further seizures. Given prolonged ED stay [facility] was contacted by workers compensation legal secretary who notes they do not have available bed until later today. As he will need dialysis and clearly further work-up, Hospitalist Dr [] consulted for further management. Around 4:30am patient with BP in 80s/50s. This was noted to have happened yesterday, but given no fluids overnight he was given 500mL IV bolus. When complete repeat BP now in 70s/40s. At this time further fluid bolus, along with septic work up initiated (given his history of recent hospitalization for UTI Sepsis). UA along with cultures, labs ordered and another 500mL IV bolus given. This brought BP to 97/67 then a bit later up to 110/70 and patient notes feeling much better. WBC stable from earlier, lactate 1.4. UA dirty though not convinced infectious, but it setting of recent sepsis and now dealing with hypotension he was given IV zosyn for coverage (appears he has been on outpatient Fortaz). With BPs normalizing, no lactic acidosis, will hold on further fluid bolus given he is dialysis patient and at risk of overload. Critical Care: I have personally spent 30 minutes of critical care time in the direct management of this patient. Acute hypotension likely secondary to sepsis requiring fluid resus and management. This was a life/limb threatening event. This 30 minutes is in excess of all separately billable procedures. Galindo Morrow MD
[2020-04-02] MEDS ORDERED: SODIUM CHLORIDE 0.9% 1000ML 500 ML IV ONE (04:59)
[2020-04-02 05:45] LABS: Basophils # (auto) 0.03 K/uL (0-0.2); Basophils % (auto) 0.2 %; Eosinophils # (auto) 0.21 K/uL (0-0.5); Eosinophils % (auto) 1.5 %; Hematocrit (blood only) 41.1 % (42-52); Immature Granulocytes # (auto) 0.12 K/uL (0.00-0.02); Immature Granulocytes % (auto) 0.9 %; Lymphocytes # (auto) 1.66 K/uL (1.2-3.4); Lymphocytes % (auto) 12.2 %; Mean Corpuscular Hemoglobin 32.3 pg (25-34); Mean Corpuscular Hgb Conc 31.6 g/dL (32-36); Mean Platelet Volume 11.3 fL (7.4-10.4); Monocytes # (auto) 1.05 K/uL (0.11-0.59); Monocytes % (auto) 7.7 %; Neutrophils # (auto) 10.52 K/uL (1.4-6.5); Neutrophils % (auto) 77.5 %; Platelet Count 212 K/uL (130-400); RDW Standard Deviation 63.6 fL (36.4-46.3); Red Blood Count 4.03 M/uL (4.7-6.1); White Blood Count 13.59 K/uL (4.8-10.8)
[2020-04-02 05:48] LABS: Appearance Urine Turbid (Clear); Bacteria Urine Automated Negative (Negative); Bilirubin Urine Negative (Negative); Blood Urine 3+ (Negative); Color Urine Orange; Epithelial Cell Urine Auto >30 /lpf (0-5); Glucose Urine UA Negative (Negative); Ketones Urine Negative (Negative); Leukocyte Esterase Urine 3+ (Negative); Nitrite Urine Positive (Negative); Specific Gravity Urine 1.018 (1.000-1.030); Urobilinogen Urine Negative (Negative); WBC Urine Automated >30 /hpf (0-5); pH Urine 8.5 (4.5-7.5)
[2020-04-02 05:50] LABS: Protein Urine 3+ (Negative)
[2020-04-02 06:02] LABS: Cast Urine Automated 0 /lpf (0-5)
[2020-04-02] MEDS ORDERED: PIPERACILLIN/TAZOBACTAM 4.5 GM/120 ML BAG IV ONE (06:07)
[2020-04-02] MEDS ORDERED: PIPERACILL/TAZOBAC CONSULT ACTIVE PRN (06:07)
[2020-04-02 06:18] LABS: Albumin Level 3.5 gm/dl (3.4-5.0); BUN Creatinine Ratio 5.9 (10-20); Bilirubin Direct 0.2 mg/dl (0-0.2); Bilirubin,Total 0.5 mg/dl (0.2-1); Calcium 8.8 mg/dl (8.5-10.1); Creatinine Clr Calc Pharmacy 10.1 ml/min; Est GFR (African American) 6.5; Est GFR (Non-African American) 5.6; Potassium 5.1 mmol/L (3.5-5.1); Total Protein 7.3 gm/dl (6.4-8.2)
[2020-04-02] MEDS ORDERED: ONDANSETRON INJ 2 MG/ML 2 ML VIAL IV PRN (07:01)
[2020-04-02] MEDS ORDERED: SODIUM CHLORIDE 0.65% NA SOLN 45 ML (OCEAN) PRN (07:01)
[2020-04-02] MEDS ORDERED: ACETAMINOPHEN 325 MG TAB PO PRN (07:01)
[2020-04-02] MEDS ORDERED: LORazepam 1.5 MG/3 ML VIAL IV PRN (07:01)
[2020-04-02] MEDS ORDERED: NON-FORMULARY MEDICATION (Cinacalcet 30 mg tablet) PO SCH (07:01)
[2020-04-02] MEDS ORDERED: CEFTAZIDIME IV SCH (07:01)
[2020-04-02] MEDS ORDERED: NITROGLYCERIN SL 0.4 MG/TAB TAB SL PRN (07:01)
[2020-04-02] MEDS ORDERED: SODIUM CHLORIDE 0.9% 1000ML 1,000 ML IV SCH (07:01)
[2020-04-02] MEDS ORDERED: PHARMACIST DISCHARGE MED REC CONSULT PRN (07:01)
[2020-04-02] MEDS ORDERED: PANTOprazole 40 MG TAB PO SCH (07:30)
--- NOTE | 2020-04-02 07:32 | Electrocardiogram Report ---
Test Reason : Blood Pressure : / mmHG Vent. Rate : 077 BPM Atrial Rate : 077 BPM P-R Int : 172 ms QRS Dur : 100 ms QT Int : 370 ms P-R-T Axes : 078 061 082 degrees QTc Int : 418 ms Normal sinus rhythm Normal ECG No previous ECGs available Confirmed by Eran Fischer ([id number]) on 04/02/2020 7:31:43 AM Referred By: [facility] Confirmed By:Eran Fischer
[2020-04-02] MEDS ORDERED: CHOLECALCIFEROL 1,000 UNITS 25 MCG TAB PO SCH (09:00)
[2020-04-02] MEDS ORDERED: DOCUSATE SODIUM 100 MG CAP PO SCH (09:00)
[2020-04-02] MEDS ORDERED: predniSONE 5 MG TAB PO SCH (09:00)
[2020-04-02] MEDS ORDERED: APIXABAN 5 MG TABLET PO SCH (09:00)
[2020-04-02] MEDS ORDERED: CALCIUM CARBONATE 1250MG TAB PO SCH (09:00)
[2020-04-02] MEDS ORDERED: allopurinoL 100 MG TAB PO SCH (09:00)
[2020-04-02] MEDS: OXYBUTYNIN CHLORIDE 5 MG TAB PO SCH ×2 (09:05→13:09)
[2020-04-02] MEDS: ASCORBIC ACID 500 MG TAB PO SCH ×2 (09:05→18:36)
[2020-04-02] MEDS: SEVELAMER HCL 800 MG TABLET PO SCH ×3 (09:05→18:35)
[2020-04-02] MEDS: SODIUM BICARBONATE 650 MG TAB PO SCH ×2 (09:05→18:35)
[2020-04-02] MEDS: MAGNESIUM OXIDE 400 MG TAB PO SCH ×2 (09:06→18:35)
--- NOTE | 2020-04-02 09:28 | History and Physical Report ---
DATE OF ADMISSION: 04/02/2020 CHIEF COMPLAINT: Seizures and CVA. HISTORY OF PRESENT ILLNESS: This is a 59-year-old male with past medical history significant for end-stage renal disease, on hemodialysis, history of stroke, history of gout, history of hyperlipidemia, recently had sepsis from UTI and was in [facility], was discharged to [facility], was brought in because of seizure episode. The patient had 2 episodes of seizures while he was getting dialysis yesterday and when he was brought to the ER, he was fine, back to his usual self. The patient had a CAT scan showing left temporal occipital infarct, likely subacute or chronic. The patient since was from [facility]. Transfer was planned to [facility], but after 15 hours of stay in the ER, the [facility] called and stated they do not have a beds currently, so the patient is getting admitted. The patient is somewhat sleepy but arousable, can tell his name, knows he is in the hospital, can tell his date of , does not know today's date. Denies any chest pain. Denies any shortness of breath, no cough, no fever, no chills, no headache, no blurred vision, no earache, no runny nose, no sore throat. Appetite is okay. No nausea, no abdominal pain. Still makes urine. requests to put him on Calderón because he straight caths daily at home. Currently somewhat drowsy. Blood pressure is running on the lower side, seems to have blood pressures chronically on the lower side, but because of recent sepsis, sepsis workup is getting done in the ER. He is still on IV antibiotics from [facility] for his recent UTI. ALLERGIES AND PAST MEDICAL HISTORY: As mentioned above. PAST SURGICAL HISTORY: Denies any past surgical history. MEDICATIONS: Currently the patient is on allopurinol 100 mg p.o. daily, Eliquis 5 mg p.o. b.i.d., ____ 500 mg p.o. b.i.d., aspirin 81 mg at bedtime, atorvastatin 40 mg at bedtime, calcium carbonate 325 mg p.o. b.i.d., ceftazidime 1 gram IV as directed, vitamin D 50 mcg p.o. daily, cinacalcet 30 mg p.o. weekly, Colace 100 mg p.o. b.i.d., famotidine 20 mg p.o. 3 times a week, magnesium oxide 400 mg p.o. b.i.d., melatonin 3 mg p.o. at bedtime, oxybutynin 5 mg p.o. t.i.d., Protonix 40 mg p.o. daily, prednisone 5 mg p.o. daily, sevelamer carbonate 800 mg p.o. t.i.d., sodium bicarbonate 325 mg p.o. b.i.d., sodium chloride 2 sprays intranasal t.i.d. p.r.n., zinc sulfate 220 mg p.o. daily. FAMILY HISTORY: Noncontributory. SOCIAL HISTORY: Denies smoking, no alcohol. Lives with his . REVIEW OF SYSTEMS: As per HPI. Could not get a complete review of systems as the patient is somewhat drowsy. PHYSICAL EXAMINATION: GENERAL: The patient is drowsy but arousable. VITAL SIGNS: Temperature 36.4, pulse 70, respiratory rate 14, blood pressure 110/45, oxygen 92% on room air. HEENT: Pupils equal, round, reactive to light. No pallor, no icterus. Oral mucosa moist. Tongue midline. NECK: No JVD, no neck masses. CARDIOVASCULAR: S1, S2, regular rate and rhythm, no murmur, no gallop. RESPIRATORY SYSTEM: Normal AP diameter. No accessory muscle use. No wheezing, no crackles. ABDOMEN: Soft, bowel sounds present, nontender. No distention. CENTRAL NERVOUS SYSTEM: Alert, drowsy but oriented to name and place. Speech clear. No facial droop seen. Tongue midline. Power 5/5 in all extremities. Able to lift his extremities. No pronator drift seen. Could not do a complete exam as the patient is somewhat unable to follow the commands. EXTREMITIES: No edema, no erythema. LABORATORY DATA: WBC 13.5, hemoglobin 13, hematocrit 41 and platelets 212. PT 12.2, INR 1.2. Sodium 135, potassium 5.1, chloride 100, CO2 of 29, BUN 54, creatinine 9, serum glucose 80. Lactic acid 1.4, calcium 8.8, phosphorus 3.1, magnesium 2.7, total bilirubin 0.5, direct bilirubin 0.2, AST 13, ALT 23, alkaline phosphatase 100. Urinalysis positive for +3 blood, positive for urine nitrite. SARS-CoV-2 rapid antigen test negative. Chest x-ray, no active disease in the chest. Head CT; left temporal occipital infarct, likely subacute to chronic, subtle decreased attenuation in the right temporal and occipital lobe suspicious for acute infarction. An MRI could be obtained. EKG: Normal sinus rhythm, rate of 77, no previous EKGs available. ASSESSMENT AND PLAN: A 59-year-old male with end-stage renal disease, on hemodialysis, was recently in the [facility] for sepsis from a urinary tract infection and is still on IV ceftazidime, currently at [facility], was brought in because of seizure activity and also found to have cerebrovascular accident on CAT scan. 1. Acute versus subacute cerebrovascular accident on the CAT scan, history of stroke last year, on Eliquis and aspirin and statin. Supposed to be transferred to [facility] where he was recently, but beds are not available, so he is getting admitted to [facility]. We will do stroke workup with MRI scan, echocardiogram, carotid Doppler, speech evaluation and Neuro consult. We will keep him n.p.o. until he is seen by speech, consulted neurology for further recommendations. 2. Seizure activity. received Keppra in ER. will place him on IV Ativan p.r.n. Get EEG and further recommendation as per neurology. 3. History of stroke in the past. Continue Eliquis, aspirin and statin. 4. Recent sepsis, blood pressure was low in the Emergency Room. Got fluid bolus and the blood pressure improved. He is on ceftazidime. ER also started on Zosyn and ordered cultures. UA is still positive. Lactic normal. He is on gentle fluids. Monitor for volume overload. Fluids as per nephrology. For now will just continue his IV ceftazidime.Will add iv vanco if any concern for ongoing sepsis. 5. End-stage renal disease, he is on hemodialysis. Nephrology consult. 6. Gastroesophageal reflux disease, proton pump inhibitor. 7. Heme-positive stool. Hemoccult was positive in the Emergency Room, but no obvious bleeding. Hemoglobin stable at 13. He is on Eliquis. Continue to monitor.Will also check for c diff. 8. History of renal transplant, which has failed as per ,still on prednisone, there is a plan for further transplant in the future. 9. Deep venous thrombosis prophylaxis, on Eliquis. DISPOSITION: Closely monitor in tele floor. Level 1 full code. Expect to transfer to [facility] or discharge to [facility] when stable. Social service to help with discharge planning. MELODY
--- NOTE | 2020-04-02 13:32 | Ultrasound Report ---
US carotid doppler BI CLINICAL HISTORY: 59 years-old Male with cva. Acute strokelike symptoms COMPARISON: Brain MRI of same day TECHNIQUE: Multiple real time sonographic images of the carotid bifurcations were obtained assessing li scale, color Doppler and spectral wave form appearance FINDINGS: RIGHT CAROTID: The peak systolic velocity measured within the right ICA is83 cm/sec. The end diasto lic velocity measured 22 cm/sec. The ICA to CCA ratio measured 0.8 which correlates with a stenosis of 0-50%. Minimal calcified plaque of the proximal right ICA. LEFT CAROTID: The peak systolic velocity measured within the left ICA is96 cm/sec. The end diastoli c velocity measured 27 cm/sec. The ICA to CCA ratio measured 1.0 which correlates with a stenosis of 0-50%. Minimal calcified plaque of the proximal left ICA. There is normal antegrade vertebral flow bilaterally. IMPRESSION: 1. No hemodynamically significant stenosis or significant atherosclerotic plaquing. 2. Normal antegrade vertebral flow bilaterally. ACT 112: Negative or not required by law. The above report was generated using voice recognition software. It may contain grammatical, syntax o r spelling errors. Electronically signed by: Kali Sewell M.D. 04/02/2020 1:31 PM
--- NOTE | 2020-04-02 13:44 | Progress Notes ---
DATE: 04/02/2020 HISTORY OF PRESENT ILLNESS: The patient is a 59-year-old with a past medical history of a failed transplant with end-stage renal disease on hemodialysis, history of prior stroke, gout, hyperlipidemia and recently sepsis from urinary tract infection. He was recently discharged from [facility] to [facility]. I do not know how long the patient had been on [facility], but he was undergoing dialysis yesterday. I had the dialysis nurse called the treating dialysis nurse and they indicated that during dialysis, he was very hypotensive and during the seizure, he was hypotensive. His blood pressure was at most 70 and perhaps at least 40 in the right arm and blood pressure was unable to be obtained in the legs. The patient by report also had a brief 10-second seizure while in the Emergency Room. I am not aware of what his blood pressure was at that time. After that time, the patient was loaded with Keppra. His CT of the head shows what appears to be a subacute to chronic left FRICKERTRON CHECKER infarct and MRI of the brain and CT shows some hypodensities in the distribution of the right MCA. MRI of the brain has not yet been read, but appears to show a posterior division of the right MCA infarction. Carotids are being performed as well. By report, the patient has no history of seizure. He has not otherwise been ill. REVIEW OF SYSTEMS: As reviewed from primary care appears unremarkable. The patient received multiple boluses of fluids in the Emergency Room due to hypotension. PAST MEDICAL HISTORY: As above. PAST SURGICAL HISTORY: Unobtainable from the patient. I understand that he had a failed transplant whether or not that is true is unclear HOME MEDICATIONS: Allopurinol, Eliquis, aspirin, atorvastatin, calcium carbonate, ceftazidime, vitamin D., cinacalcet, Colace, famotidine, magnesium oxide, melatonin, oxybutynin, Protonix, prednisone, sevelamer, sodium bicarbonate, sodium chloride, zinc sulfate. FAMILY HISTORY: Noncontributory. SOCIAL HISTORY: Denies smoking, no alcohol. Lives with . REVIEW OF SYSTEMS: Not obtainable. DATABASE: In addition to the aforementioned MRI of the brain and CT showed a white count on admission to be 15, H and H 14/46, platelet count 245. INR 1.2. Sodium 132 and creatinine 7.44, glucose 118, magnesium 2.7, total protein 8.3. Urinalysis, 3+ protein, 3+ blood, positive nitrite, 3+ leukocyte esterase, white blood cells greater than 30. COVID negative. Blood pressures are reviewed. Lowest on the floor, appeared to be 74/58. PHYSICAL EXAMINATION: CURRENT VITAL SIGNS: 121/71, 77, 20, 36.4, O2 sat 100% on room air. GENERAL: The patient is awake, alert, but mentation is slowed and he is inattentive. He is able to state his name. He has difficulty following commands, but he can follow occasional 1-step commands. He denies any headache or new weakness. HEAD: Normocephalic, atraumatic. NECK: No carotid bruits. HEART: No heart murmurs. The heart appears to be regular rate and rhythm. NEUROLOGIC: Pupils are equal, round and reactive to light. I could not reliably visualize the optic nerves. Visual castorena are impaired to the right and maybe as well to the left, although I believe I had him counting a few fingers toward the left. There appears to be some right/left confusion. I cannot test to naming being intact. Strength appeared full in the uppers. There may have been mildly weaker on the left. The patient did not understand the command for rapid alternating movements. Lower extremities appeared to be symmetric as well. There is significant distal atrophy in the lower extremities. It appears that the TAs are likely weak as well. The patient's reflexes are diffusely diminished. Knee jerks are absent. Ankle jerks are absent. Toes are downgoing. The patient does not understand cerebellar function to perform and he indicates that temperature is symmetric bilaterally. IMPRESSION: This patient presented with a several brief seizures. It is unclear whether this just represents hypoperfusion or related to hypotension or whether or not this was a true seizure. The new right MCA stroke could be a watershed stroke as well related to hypotension. I do recommend obtaining the carotid ultrasound to see if there is any high-grade stenosis that would put him at more risk with relative hypotension. Also recommend an echo, although I am assuming the patient has atrial fibrillation, but rule out vegetation or left atrial clot. Ultimately some decision will need to be made as to whether or not Eliquis is adequate, but some of that I think depends on level of hypotension that is recorded and any carotid stenosis. I agree with continuing Keppra would obtain an EEG. It appears that the dose for Keppra for renal function on hemodialysis is 500 mg b.i.d., giving a 50% daily dose post-hemodialysis as a supplement. We will follow with you. MTDD
--- NOTE | 2020-04-02 13:54 | Magnetic Resonance Report ---
MR brain wo con HISTORY: 59 years-old Male cva . Acute strokelike symptoms with seizure COMPARISON: Head CT 04/01/2020 TECHNIQUE: Multiplanar multisequence MRI of the brain was obtained without the use of IV contrast. FINDINGS: Motion degraded exam. Restricted diffusion is noted involving the right temporal and occipital lobes and to a lesser extent within the posterior right parietal lobe overall measuring up to approximately 9.0 cm in length. Thi s demonstrates decreased signal on ADC map. Cytotoxic edema is noted within this distribution with gy ral expansion and partial sulcal effacement. No acute intracranial hemorrhage, midline shift, hydroce phalus or intracranial mass identified. Remote infarct of the left temporal and occipital lobes with areas of laminar necrosis, encephalomalacia and gliosis. Mild age-related involutional changes. Mild patchy white matter hypodensities suggest chronic microvascular ischemic disease. Bilateral mesial te mporal lobes are unremarkable. No evidence of mesial temporal sclerosis. Moderate right mastoid effusion. Mild mucosal thickening of the paranasal sinuses. Prior bilateral le ns replacement. The skull and soft tissues are unremarkable. IMPRESSION: 1. Motion degraded exam. 2. Moderate sized acute/early subacute (greater than 24 hours old) infarct of the right temporal, occ ipital and posterior parietal lobes 3. Late subacute to chronic appearing infarct of the left temporal and occipital lobes 4. No acute intracranial hemorrhage or midline shift. ACT 112: Negative or not required by law. The above report was generated using voice recognition software. It may contain grammatical, syntax o r spelling errors. Electronically signed by: Kali Sewell M.D. 04/02/2020 1:52 PM
[2020-04-02] MEDS ORDERED: PIPERACILLIN/TAZOBACTAM 3.375 GM in DEXTROSE 5% 100 ML IV SCH (14:00)
--- NOTE | 2020-04-02 16:46 | Communication Note ---
Date of Service: April 02, 2020 Pt admitted earlier today : please refer to H&P documented earlier for detail : briefly this is a 59 yo Male with complex past medical hx of ESRD failed renal transplant currently on dialysis, Hypertension , was recently admitted at [facility] with UTI /sepsis , was transferred to [facility] with IV Ceftazidime sent from rehab [facility] yesterday 04/01/20 -as pt had a Grand Mal Seizure ( new onset ) while on dialysis pt was hypotensive in ER was given IV fluids , no evidence of Sepsis CT head shows acute/subacute stroke on left temporal/occipital area pt was on Eliquis -hx of previous CVA ( possible Paroxysmal Afib?) found not to be tPA candidate by [facility] stroke Neurology . Family / -Liz Johnson wanted pt to be transferred to [facility] for continuation of care . recently discharged from [facility] /All pt's specialist -Learning Consultant , salesperson parts are at that Center transfer process to [facility] was done by ER attending, pt remained at [facility] due to lack of bed availability at [place] pt did not had any recurrence of Seizure activity since admission Neurology consult -appreciated MRI of brain : 1. Moderate sized acute/early subacute (greater than 24 hours old) infarct of the right temporal, occipital and posterior parietal lobes 2. Late subacute to chronic appearing infarct of the left temporal and occipital lobes possible seizure to acute CVA ? pt started on ant seizure meds Keppra 500 mg PO BID continued with IV Ceftazidime for UTI -no evidence of sepsis on admission had scheduled dialysis today . Pts called back this AM , requests to contact [facility] to address transfer Called back to [facility] pt already had an accepting physician /Hospitalist Insurance Auth for transfer Obtained pt seen at bedside ; awake and alert , no confusion , no dysarthria ( passed Dysphagia screen /test - by speech pathology ) offers no complains vitals stable updated regarding being transferred to [place] /agreeable pt is transferred to [facility] in stable condition Accepting Physician : Dr Gerber
[2020-04-02] MEDS ORDERED: cefTAZidime 500 MG in DEXTROSE 5% 50 ML IV SCH (17:00)
--- NOTE | 2020-04-02 17:03 | Discharge Summary ---
Date of Service April 02, 2020 Admission HPI Per Admitting Provider DICTATED BY: Bubba Koo MD DATE OF ADMISSION: 04/02/2020 CHIEF COMPLAINT: Seizures and CVA. HISTORY OF PRESENT ILLNESS: This is a 59-year-old male with past medical history significant for end-stage renal disease, on hemodialysis, history of stroke, history of gout, history of hyperlipidemia, recently had sepsis from UTI and was in [facility], was discharged to [facility], was brought in because of seizure episode. The patient had 2 episodes of seizures while he was getting dialysis yesterday and when he was brought to the ER, he was fine, back to his usual self. The patient had a CAT scan showing left temporal occipital infarct, likely subacute or chronic. The patient since was from [facility]. Transfer was planned to [facility], but after 15 hours of stay in the ER, the [facility] called and stated they do not have a beds currently, so the patient is getting admitted. The patient is somewhat sleepy but arousable, can tell his name, knows he is in the hospital, can tell his date of , does not know today's date. Denies any chest pain. Denies any shortness of breath, no cough, no fever, no chills, no headache, no blurred vision, no earache, no runny nose, no sore throat. Appetite is okay. No nausea, no abdominal pain. Still makes urine. requests to put him on Calderón because he straight caths daily at home. Currently somewhat drowsy. Blood pressure is running on the lower side, seems to have blood pressures chronically on the lower side, but because of recent sepsis, sepsis workup is getting done in the ER. He is still on IV antibiotics from [facility] for his recent UTI. Principal Diagnosis NEW ONSET OF SEIZURE ACUTE /SUBACUTE CVA ESRD ON DIALYSIS UTI /SEPSIS ON IV ANTIBIOTICS Discharge Exam Constitutional WD/WN, vitals as above + ill appearing Eyes + anicteric sclerae ENMT external ear and nose normal, oropharynx normal Neck trachea midline, no thyromegaly Respiratory no cough Auscultation: + diminished lung sounds; no crackles and no wheezes Cardiovascular RRR, no murmur, no edema Gastrointestinal (Abdomen) Percussion/Palpation: abdomen soft; abdomen nontender Skin no rashes, warm and dry Neurologic PERRL, EOMI, accommodation nl, no face palsy, no dysarthria Psychiatric A+Ox3, euthymic affect Discharge Data Allergies Allergy/AdvReac Type Severity Reaction Status Date / Time cefazolin [From Anc] Allergy Unknown Unverified 04/01/20 12:31 Consultations 04/02/20 03:27 ED Decision to Admit Stat 04/02/20 07:01 Consult Case Management - Discharge Planning Routine Consult Case Management - Discharge Planning Routine Consult Neurology Routine 04/02/20 08:00 Consult Nephrology Routine Ordered Studies 04/01/20 12:07 CT head/brain wo con Stat 04/02/20 07:01 MR brain wo con Urgent US carotid doppler BI Routine 04/03/20 08:00 CT head/brain wo con Routine Hospital Course (1) New onset seizure: Date of Service: April 02, 2020 Pt admitted earlier today : please refer to H&P documented earlier for detail : briefly this is a 59 yo Male with complex past medical hx of ESRD failed renal transplant currently on dialysis, Hypertension , was recently admitted at [facility] with UTI /sepsis , was transferred to [facility] with IV Ceftazidime sent from rehab [facility] yesterday 04/01/20 -as pt had a Grand Mal Seiz ure ( new onset ) while on dialysis pt was hypotensive in ER was given IV fluids , no evidence of Sepsis CT head shows acute/subacute stroke on left temporal/occipital area pt was on Eliquis -hx of previous CVA ( possible Paroxysmal Afib?) found not to be tPA candidate by [facility] stroke Neurology . Family / -Liz Johnson wanted pt to be transferred to [facility] for continuation of care . recently discharged from [facility] /All pt's specialist -Stripping Machine Operator , coke still cleaner are at that Center transfer process to [facility] was done by ER attending, pt remained at [facility] due to lack of bed availability at [facility] pt did not had any recurrence of Seizure activity since admission Neurology consult -appreciated MRI of brain : 1. Moderate sized acute/early subacute (greater than 24 hours old) infarct of the right temporal, occipital and posterior parietal lobes 2. Late subacute to chronic appearing infarct of the left temporal and occipital lobes possible seizure to acute CVA ? pt started on ant seizure meds Keppra 500 mg PO BID continued with IV Ceftazidime for UTI -no evidence of sepsis on admission had scheduled dialysis today . Pts called back this AM , requests to contact [facility] to address transfer Called back to [facility] pt already had an accepting physician /Hospitalist Insurance Auth for transfer Obtained pt seen at bedside ; awake and alert , no confusion , no dysarthria ( passed Dysphagia screen /test - by speech pathology ) offers no complains vitals stable updated regarding being transferred to [facility] /agreeable pt is transferred to [facility] in stable condition Accepting Physician : Dr Gerber (2) CKD (chronic kidney disease) requiring chronic dialysis: (3) Acute CVA (cerebrovascular accident): Total Time Total Time Spent Total Time Spent (In Minutes): 35 mins Total Time Includes: Examination of the Patient, Discharge Planning, Medication Reconciliation and Communication With Other Providers Discharge Plan Discharge Items Patient Disposition: Transfer Acute Care Hospital Reason For Visit: SEIZURE Discharge Diagnosis: NEW ONSET OF SEIZURE ACUTE /SUBACUTE CVA ESRD ON DIALYSIS UTI /SEPSIS ON IV ANTIBIOTICS Activity: As commented below Activity Comment: TOLERATED Non-emergency contact: Primary Care Provider Call non-emergency contact if: you have any medication questions Follow-up/Referrals: PCP,NO [Primary Care Provider] - Diet: Dialysis Renal and Heart Healthy Addtl Attending Provider Instructions: PATIENT IS TRANSFERRED TO [facility] FOR CONTINUATION OF CARE ACCEPTING PHYSICIAN /HOSPITALIST : DR GERBER Pending Studies at Discharge: No Stand-Alone Forms: My [facility] Skilled Items Patient informed of condition?: Yes DNR: No Discharge Level of Care: Other Communicable Disease: No Discharge Prognosis: Stable Lines: Peripheral IV Urinary Catheter: No Medications and DC Order Prescriptions: Continued atorvastatin 40 mg tablet 40 mg PO HS RF: 0 sodium bicarbonate 325 mg Tablet 325 mg PO BIDM RF: 0 prednisone 5 mg tablet 5 mg PO DAILY RF: 0 melatonin 3 mg Tablet 3 mg PO HS RF: 0 allopurinol 100 mg tablet 100 mg PO DAILY RF: 0 aspirin [Aspirin Low Dose] 81 mg Tablet,Delayed Release (Dr/Ec) 81 mg PO HS RF: 0 famotidine 20 mg Tablet 20 mg PO 3XWK RF: 0 magnesium oxide 400 mg (241.3 mg magnesium) tablet 400 mg PO BIDM RF: 0 ascorbic acid (vitamin C) 500 mg Tablet 500 mg PO BIDM RF: 0 pantoprazole 40 mg tablet,delayed release (DR/EC) 40 mg PO DAILYBB RF: 0 docusate sodium 100 mg Capsule 100 mg PO BID RF: 0 Fortaz 500 mg Recon Soln 1 g IV DIRECTED RF: 0 calcium carbonate 500 mg calcium (1,250 mg) Tablet,Chewable 1,500 mg PO BID RF: 0 zinc sulfate 220 mg Capsule 220 mg PO DAILY RF: 0 oxybutynin chloride 5 mg tablet 5 mg PO TID RF: 0 sodium chloride 0.65 % Aerosol,[place] 2 spray INTRANASAL TID PRN (Reason: Congestion) RF: 0 cinacalcet 30 mg tablet 30 mg PO WK RF: 0 sevelamer carbonate 800 mg tablet 800 mg PO TIDM RF: 0 cholecalciferol (vitamin D3) [Vitamin D3] 50 mcg (2,000 unit) Capsule 50 mcg PO DAILY RF: 0 Eliquis 5 mg tablet 5 mg PO BID RF: 0 Discharge Orders: Discharge Order (Routine); Ordered 04/02/20 Ordered By: Swati Groves Admission Data Admit Date/Time: 04/02/20 05:58 Attending Provider: Swati Groves Admit Provider: Bubba Koo Primary Care Provider: PCP,NO Other Providers: Bubba Koo ; Gemma Dunlap ; Musa Adams ; Gemma Steward ; Alek Peoples ; Anika Fernández.
[2020-04-02] MEDS ORDERED: STROKE PATIENT DISCHARGE STA (17:06)
--- NOTE | 2020-04-02 18:04 | Consultation Report ---
DATE OF CONSULTATION: 04/02/2020 NEPHROLOGY CONSULTATION NOTE HISTORY OF PRESENT ILLNESS: The patient is a 59-year-old male with past medical history significant for end-stage renal disease, on hemodialysis in [place]. He is usually followed in [place]. He was discharged to [facility] day before yesterday for further rehabilitation. He was getting dialysis as per his routine schedule yesterday at the rehab hospital. About senior living into dialysis, he had a witnessed grand mal seizure, after which the patient was sent over to the hospital for further workup. The patient did have a CT scan, which shows left temporal occipital infarct. At this time, he is getting dialysis today. He is somewhat confused, but he is hemodynamically stable. PAST MEDICAL AND SURGICAL HISTORY: Hypertension, history of stroke, end-stage renal disease, on hemodialysis [id number], history of blood clot, GERD. FAMILY HISTORY: Negative for renal disease. SOCIAL HISTORY: No smoking, no alcohol. Lives with his . ALLERGIES AND MEDICATION LIST AT HOME: Reviewed in detail. REVIEW OF SYSTEMS: As per HPI; unless stated there, 12 systems reviewed and negative. PHYSICAL EXAMINATION: GENERAL: Middle-aged white male who looks older than his stated age. He is awake, alert, somewhat confused. VITAL SIGNS: Blood pressure is 140/61, pulse rate 78, temperature 36.4, 94% on room air. HEENT: Mucous membranes moist. NECK: Supple. No jugular venous distention. CHEST: Bilateral decreased breath sounds, poor inspiratory effort limited quality of the exam. CARDIOVASCULAR: S1, S2 regular. ABDOMEN: Soft, nontender, obese. EXTREMITIES: Show trace edema. LABORATORY TEST: From this morning was reviewed. Hemoglobin is 13, WBC count 13.59, platelet count 212. Sodium 135, BUN 54, creatinine 9.09. CT scan showed possible subacute versus acute infarct. ASSESSMENT AND PLAN: A 59-year-old male with end-stage renal disease, on chronic hemodialysis [id number]-[id number], was admitted for witnessed new-onset grand mal seizure and mental status change, which happened while he was getting dialysis. The working diagnosis at this time is possible stroke. End-stage renal disease: No major fluid or electrolyte imbalance. He is getting dialysis today as he did not have enough dialysis yesterday. After this, he is getting transferred to [facility] to be close to his home. The arteriovenous fistula is working fine and he is tolerating dialysis very well as of now.
[2020-04-02] MEDS ORDERED: levETIRAcetam 500 MG TAB PO SCH ×2 (19:00→21:00)
[2020-04-02] MEDS ORDERED: MELATONIN 3 MG TAB PO SCH (21:00)
[2020-04-02] MEDS ORDERED: ATORVASTATIN 40 MG TAB PO SCH (21:00)
[2020-04-02] MEDS ORDERED: ASPIRIN 81 MG ECTAB PO SCH (21:00)
[2020-04-04] MEDS ORDERED: FAMOTIDINE 20 MG TAB PO SCH (09:00)
== END 2020-04-02 19:05 | disposition short-term general hospital (02) | DRG 64 ==
LOC: ED 11:47 → 2S 04-02 05:58